=== PATIENT | male | born 1950 | race African-American/Black ===

== ENCOUNTER 2021-03-16 12:25 | Emergency (ER) | payer OTHER ==
[~2021-03-16] VITALS: Ht 180.3 cm; Wt 111.1 kg
[2021-03-16 12:30] VITALS: BP_SYST 149
--- NOTE | 2021-03-16 12:32 | NUR ---
Pt to bed 1 for evaluation. Pt gowned and attached to property assessment monitor.
--- NOTE | 2021-03-16 12:34 | NUR ---
Pt AAO and ambulatory reporting sudden onset of SOB. Pt reports that SOB becomes worse with exertion but currently denies any pain. Pt reports that he was feeling near syncopal and that his heartrate was low in the 40's at home. Pt called [facility] help line and was instructed to go to the nearest ER for evaluation. Pt has history of DM and HTN. Accucheck on arrival (195).
--- NOTE | 2021-03-16 12:35 | NUR ---
Dr. Marcus at bedside to assess.
--- NOTE | 2021-03-16 12:37 | NUR ---
EKG done at bedside. Results to Dr. Marcus for interpretation.
[2021-03-16] MEDS ORDERED: NACL 0.9% 1,000 ML IV ONE (12:45)
[2021-03-16] MEDS ORDERED: CALCIUM GLUCONATE 1 GM in NS 100 ML IV ONE (12:45)
[2021-03-16] MEDS ORDERED: ATROPINE SULFATE 1 MG/10 ML SYRINGE IVP ONE (12:45)
[2021-03-16] MEDS ORDERED: GLUCAGON,HUMAN RECOMBINANT 1 MG VIAL IVP ONE (12:45)
--- NOTE | 2021-03-16 12:53 | NUR ---
Portable CXR done at bedside.
[2021-03-16] MEDS ORDERED: CALCIUM GLUCONATE 1 GM/10 ML VIAL ONE (12:55)
[2021-03-16] MEDS ORDERED: GLUCAGON,HUMAN RECOMBINANT 1 MG VIAL ONE ×2 (12:59→13:05)
[2021-03-16 13:05] LABS: BASOPHILS # (AUTO) 0.2 K/uL (0.0-0.2); BASOPHILS % (AUTO) 2.1 % (0.0-2.0); EOSINOPHILS # (AUTO) 0.1 K/uL (0.0-0.4); EOSINOPHILS % (AUTO) 1.7 % (0.0-4.0); HEMATOCRIT 36.7 % (36-54); HEMOGLOBIN 12.6 g/dL (14.0-18.0); LYMPHOCYTES # (AUTO) 2.4 K/uL (1.0-5.5); MEAN CORPUSCULAR HEMOGLOBIN 31 pg (27-31); MEAN CORPUSCULAR HGB CONC 34 % (32-36); MEAN CORPUSCULAR VOLUME 89 fL (79.0-98.0); MONOCYTES # (AUTO) 0.3 K/uL (0.0-1.0); MONOCYTES % (AUTO) 4.3 % (1.7-9.3); NEUTROPHILS # (AUTO) 4.7 K/uL (1.8-7.7); NEUTROPHILS % (AUTO) 60.9 % (40.0-70.0); PLATELET COUNT (AUTO) 269 K/uL (130-430); RED BLOOD CELL COUNT(AUTO) 4.13 MIL/uL (4.2-6.2); RED CELL DISTRIBUTION WIDTH 14.6 % (9.0-15.0); WHITE BLOOD COUNT (AUTO) 7.8 K/uL (4.8-10.8)
[2021-03-16 13:12] LABS: CALCIUM 8.8 mg/dL (8.4-11.0); CREATININE 1.57 mg/dL (0.55-1.30); POTASSIUM 3.6 mmol/L (3.5-5.1)
[2021-03-16 13:20] LABS: ALBUMIN 3.4 g/dL (3.4-4.8); PHOSPHORUS 3.5 mg/dL (2.7-4.5); TOTAL BILIRUBIN 0.8 mg/dL (0.0-1.0)
[2021-03-16] MEDS ORDERED: NOR10 PO (13:33)
[2021-03-16] MEDS ORDERED: BRI.2% EACH EYE (13:33)
[2021-03-16] MEDS ORDERED: LIP10 PO (13:33)
[2021-03-16] MEDS ORDERED: GLIP10TA11 PO (13:33)
[2021-03-16] MEDS ORDERED: TIMO5DRO16 EACH EYE (13:33)
[2021-03-16] MEDS ORDERED: LISI10TA29 PO (13:33)
[2021-03-16] MEDS ORDERED: GLU500 PO (13:33)
[2021-03-16] MEDS ORDERED: METO-442 PO (13:33)
--- NOTE | 2021-03-16 13:39 | NUR ---
Med rec and belongings list completed. Pt's notified of admission
[2021-03-16] MEDS ORDERED: DOPamine PREMIX 250 ML IV ONE ×3 (13:45→18:07)
--- NOTE | 2021-03-16 14:00 | NUR ---
Pt's HR still 38-42bpm, Dopamine drip started and titrated per protocol.
--- NOTE | 2021-03-16 14:45 | NUR ---
Pt's HR still dropping into the 30's and 40's, BP 198/68, Dr. Diop aware, Dopamine drip titrated down to 15mcg/kg/hr as per Dr. Diop's orders.
--- NOTE | 2021-03-16 15:00 | NUR ---
Pt had 2 episodes of vomitting, VO for IVP zofran received from Dr. Diop
[2021-03-16] MEDS ORDERED: ONDANSETRON HCL 4 MG/2 ML VIAL ONE (15:04)
[2021-03-16] MEDS ORDERED: ONDANSETRON HCL 4 MG/2 ML VIAL IVP ONE (15:15)
[2021-03-16] MEDS ORDERED: ASPIRIN 325 MG TABLET PO ONE (15:30)
--- NOTE | 2021-03-16 16:21 | NUR ---
Pt complaining about urinary urgency and lower abdominal pain. Attempting to urinate using the urinal at bedside, pt unable to void. Dr. Diop aware, TO given for Amaya insertion. # 16 FR Amaya catheter with use of sterile technique. Immediate return of 1400 cc pale yellow urine noted. Bedside drainage bag placed below level of bladder. Urine sample collected and sent to lab. Pt tolerated procedure well.
--- NOTE | 2021-03-16 17:25 | NUR ---
Talked to Amy with [facility], asked if Dr. Diop could place a right IJ Cordis to prep pt for pacing when he arrives at [facility]. Dr. Diop aware.
--- NOTE | 2021-03-16 17:50 | NUR ---
Radiology at bedside for CXR to confirm placement of IJ. Per Dr. Diop, placement verified.
--- NOTE | 2021-03-16 18:00 | NUR ---
Pt declined dinner tray, checked blood sugar, 182mg/dL
[2021-03-16 19:18] VITALS: BP_SYST 166
--- NOTE | 2021-03-16 19:20 | NUR ---
Patient to be transferred to [facility]. Is being transferred due to higher level of care. Receiving facility has accepting physician and available space. ER physician has signed transfer form. Patient or responsible democrat has agreed to transfer and signed form. Patient belongings inventoried and will be sent with patient. Copy of nursing notes, lab reports, EKG, Physicians Orders and X-rays to be sent with patient. Report called to Kahlil at receiving facility. Receiving physician is Dr. Zapien.
== END 2021-03-16 19:18 | disposition short-term general hospital (02) ==
LOC: SED 12:25
DX: I44.2 Atrioventricular block, complete (principal); R55 Syncope and collapse; R06.02 Shortness of breath; I10 Essential (primary) hypertension; E11.9 Type 2 diabetes mellitus without complications; Z88.8 Allergy status to other drugs, medicaments and biological substances; Z79.84 Long term (current) use of oral hypoglycemic drugs; Z79.899 Other long term (current) drug therapy; Z20.822 Contact with and (suspected) exposure to COVID-19
CPT/HCPCS: 36415; 71045; 80053; 82962; 83735; 83880; 84100; 84484; 85025; 87426; 93005; 96365; 96366; 96367; 96375; 99291; J0461; J0610; J1265; J1610; J2405; J7030